=== PATIENT | female | born 1950 | race Caucasian/White ===

== ENCOUNTER 2016-06-30 17:29 | Emergency (ER) | payer OTHER ==
[2016-06-30] MEDS ORDERED: TETANUS/DIPHTHERIA/PERTUSSIS 0.5 ML SYRINGE IM ONE ×2 (17:47→17:49)
[2016-06-30] MEDS ORDERED: LIDOCAINE 2% 10 ML MDV ONE (17:54)
[2016-06-30] MEDS ORDERED: CEPHALEXIN 250 MG CAPSULE PO STA (18:07)
[2016-06-30] MEDS ORDERED: CEPHALEXIN 250 MG CAPSULE PO ONE (18:12)
== END 2016-06-30 18:37 | disposition home or self-care (01) ==
DX: S92.532B Displaced fracture of distal phalanx of left lesser toe(s), initial encounter for open fracture (principal); W20.8XXA Other cause of strike by thrown, projected or falling object, initial encounter; Z23 Encounter for immunization; K21.9 Gastro-esophageal reflux disease without esophagitis; M19.90 Unspecified osteoarthritis, unspecified site
CPT/HCPCS: 12001; 73630; 90471; 90715; 99283; A9270

== ENCOUNTER 2016-07-07 21:11 | Outpatient (CLI) | payer OTHER | END 2016-07-07 21:12 | disposition home or self-care (01) | DX: D64.9 Anemia, unspecified (principal); E66.9 Obesity, unspecified; Z78.9 Other specified health status; F32.9 Major depressive disorder, single episode, unspecified ==

== ENCOUNTER 2016-08-12 15:56 | Outpatient (CLI) | payer OTHER | END 2016-08-12 15:57 | DX: D64.9 Anemia, unspecified (principal) ==